=== PATIENT | female | born 1980 | race Caucasian/White ===

== ENCOUNTER 2020-10-19 21:05 | Emergency (ER) | payer OTHER ==
[~2020-10-19] VITALS: Ht 162.6 cm; Wt 99.8 kg
[2020-10-19] MEDS ORDERED: PROZAC10 M1 PO (21:09)
[2020-10-19] MEDS ORDERED: PREDNISONE50 MG PO (22:37)
[2020-10-19 23:27] VITALS: BP 137/83
== END 2020-10-19 23:27 | disposition home or self-care (01) ==
LOC: M.ERS 21:05
DX: R22.0 Localized swelling, mass and lump, head (principal); T63.441A Toxic effect of venom of bees, accidental (unintentional), initial encounter; Z87.01 Personal history of pneumonia (recurrent); Z88.5 Allergy status to narcotic agent; Z79.899 Other long term (current) drug therapy; Y92.89 Other specified places as the place of occurrence of the external cause